=== PATIENT | male | born 1955 | race Caucasian/White ===

== ENCOUNTER 2025-04-15 13:58 | Emergency (ER) | payer MEDICARE, SELFPAY ==
[2025-04-15 14:00] VITALS: BP 130/83
--- NOTE | 2025-04-15 15:23 | ED.GENMED ---
History of Present Illness
<Zeynep Sarabia NP - Last Filed: 04/15/25 22:13>
General
Chief Complaint: Male Genito-Urinary Symptoms
Source: patient
Exam Limitations: none
Time Seen by Provider: 04/15/25 15:03
Nursing documentation reviewed up to this point in time: agreed with
History of Present Illness
History of Present Illness:
Patient to ED with complaint of fever/chills x 1 week. States he was traveling in [place]. States he travels with a zpack and took this without improvement. He was then seen by a provider in [place] who was concerned for sinus infection. He was
placed on amoxicillin on , still no improvement. He had labs drawn yesterday in [place]. Urine pos for blood and protein. CBC not included. To ED today for persistent fevers. Temp max 103.8. Reports chills, intermittent chest pain, PRADO. No
cough, no n/v/d or abdominal pain. Denies any calf pain or swelling. No rash. Appetite decreased.
Past History
<Zeynep Sarabia NP - Last Filed: 04/15/25 22:13>
Past History
ED Past Medical History: HTN, Hypercholesterolemia and Psychiatric (depression)
ED Past Surgical History: Tonsilectomy and Other (Inguinal hernia repair Nov 2024)
Social History
Tobacco: Former smoker (quit x 25 years)
Alcohol: Daily (wine)
Drug: None
Review of Systems
<Zeynep Sarabia NP - Last Filed: 04/15/25 22:13>
Review of Systems
Allergies reviewed?: Yes
All Other Systems: ROS reviewed and negative except as documented in HPI and ROS
Constitutional: Reports fever, fatigue and chills
EENT: Reports no symptoms
Respiratory: Reports trouble breathing (PRADO)
ABD/GI: Reports no symptoms
: Reports no symptoms
Musculoskeletal: Reports no symptoms
Skin: Reports no symptoms
Neurological: Reports weakness
Psychiatric: Reports no symptoms
Phy Exam
<Zeynep Sarabia SOFTWARE QA SYSTEM SPECIALIST - Last Filed: 04/15/25 22:13>
General Physical Exam
General Presentation: moderate distress
General age: appears stated age
General Skin: warm and dry
General Habitus: normal
General Mental: alert
Cardiovascular Exam
Cardiovascular Exam: tachycardia
Pulmonary Exam
Pulmonary Exam: lungs clear and chest non tender
Gastrointestinal Exam
Gastrointestinal Exam: non tender and soft
Neurological Exam
Neurological Exam: alert and oriented x3
Musculoskeletal Exam
Musculoskeletal Exam: full ROM and no edema
Skin Exam
Skin Exam: normal color, warm/dry and no rash
Psychiatric Exam
Psychiatric Exam: normal mood/affect
Course
<Zeynep Sarabia SOFTWARE QA SYSTEM SPECIALIST - Last Filed: 04/15/25 22:13>
Orders/Labs/Results
Orders:
Orders
04/15/25 15:22
Cardiac Monitoring- Treatment ONCE
Acetaminophen [Tylenol] 1,000 mg PO NOW STA
04/15/25 15:23
Electrocardiogram (*1) Urgent
Reason for Study: Chest Pain
EKG- Treatment ONCE
0.9% Sodium Chloride 1000 ml [Nss] 1,000 ml IV BOLUS
04/15/25 16:23
Complete Blood Count/With Diff Urgent
Comprehensive Metabolic Panel Urgent
D-Dimer Urgent
Direct Bilirubin Urgent
Comment: ADD ON
Lactic Acid Urgent
Lipase Urgent
Comment: ADD ON
Monotest Urgent
Troponin I Urgent
Blood Culture Urgent
MARTHA Source: Blood/Venous
Specimen Description:
04/15/25 16:25
COVID-19 Antigen Urgent
Source: Nasal Swab
Urinalysis Reflex To Culture Urgent
Date Specimen was Collected: 04/15/25
Time Specimen was Collected: 16:19
Urine Microscopic Reflex Cult Urgent
Influenza A+B Rapid Molecular Urgent
MARTHA Source: Nasal Swab
Specimen Description:
Urine Culture Urgent
MARTHA Source: U
Specimen Description:
Date Specimen was Collected: 04/15/25
Time Specimen was Collected: 16:19
04/15/25 16:27
Blood Culture Urgent
MARTHA Source: Blood/Venous
Specimen Description:
04/15/25 17:06
Add On- LAB Urgent
Tests Added?: lipase
04/15/25 17:08
Ketorolac [Toradol] 15 mg IV NOW STA
04/15/25 17:15
CT Pe/abd/pel W Urgent
Reason For Exam: elevated LFT's, fever unknown origin, tachycardia
04/15/25 17:27
Add On- LAB Urgent
Tests Added?: mono
04/15/25 17:54
Add On- LAB Urgent
Tests Added?: direct bilirubin
04/15/25 18:54
Hepatitis A IgM Antibody Urgent
Hepatitis B Core Ab, IgM Urgent
Hepatitis B Surface Antibody Urgent
Hepatitis B Surface Antigen Urgent
Hepatitis C Antibody Urgent
Abnormal Lab Results
04/15/25 04/15/25
16:23 16:25
WBC 3.8 L 10^3/uL
(4.8-10.8)
RBC 3.17 L 10^6/uL
(4.70-6.10)
Hgb 9.4 L g/dL
(13.0-18.0)
Hct 27.5 L %
(39.0-52.0)
MPV 10.8 H fL
(7.4-10.4)
Abs Immat Gran (auto) 0.1 H 10^3/uL
(0-0.05)
Absolute Lymphs (auto) 1.0 L 10^3/uL
(1.2-3.4)
Immature Gran % 1.8 H %
(0-0.5)
Monocytes % 13.8 H %
(1.7-9.3)
D-Dimer 5.90 H ug/mlFEU
(0.00-0.50)
BUN 31 H mg/dl
(9-20)
Glucose 106 H mg/dl
(70-99)
Total Bilirubin 2.7 H mg/dl
(0.2-1.3)
Direct Bilirubin 1.2 H mg/dl
(0.0-0.4)
AST 630 H* U/L
(17-59)
ALT 322 H U/L
(0-50)
Alkaline Phosphatase 139 H U/L
(38-126)
Albumin 3.3 L g/dl
(3.5-5.0)
Ur Occult Blood Reflex 4+ A
(Negative)
Urine Bilirubin 1+ A
(Negative)
Urine Urobilinogen 3+ A
(Neg - 1+)
Leukocyte Esterase Rfl 1+ A
(Negative)
Urine Bacteria (Reflex) Many A
(Negative)
Urine Albumin (Reflex) 3+ A
(Neg - Trace)
04/15/25 16:23
04/15/25 16:23
Vital Signs
Initial and Last Documented VS:
Initial Vital Signs
Temp Pulse Resp BP Pulse Ox
99.6 F 96 16 130/83 100
04/15/25 14:00 04/15/25 14:00 04/15/25 14:00 04/15/25 14:00 04/15/25 14:00
Last Documented Vital Signs
Temp Pulse Resp BP Pulse Ox
99.1 F 86 16 106/63 96
04/15/25 18:54 04/15/25 19:00 04/15/25 19:00 04/15/25 18:34 04/15/25 19:00
<Yvette Camara MD - Last Filed: 04/15/25 18:03>
Orders/Labs/Results
Orders:
Orders
04/15/25 15:22
Cardiac Monitoring- Treatment ONCE
Acetaminophen [Tylenol] 1,000 mg PO NOW STA
04/15/25 15:23
Electrocardiogram (*1) Urgent
Reason for Study: Chest Pain
EKG- Treatment ONCE
0.9% Sodium Chloride 1000 ml [Nss] 1,000 ml IV BOLUS
04/15/25 16:23
Complete Blood Count/With Diff Urgent
Comprehensive Metabolic Panel Urgent
D-Dimer Urgent
Direct Bilirubin Urgent
Comment: ADD ON
Lactic Acid Urgent
Lipase Urgent
Comment: ADD ON
Monotest Urgent
Troponin I Urgent
Blood Culture Urgent
MARTHA Source: Blood/Venous
Specimen Description:
04/15/25 16:25
COVID-19 Antigen Urgent
Source: Nasal Swab
Urinalysis Reflex To Culture Urgent
Date Specimen was Collected: 04/15/25
Time Specimen was Collected: 16:19
Urine Microscopic Reflex Cult Urgent
Influenza A+B Rapid Molecular Urgent
MARTHA Source: Nasal Swab
Specimen Description:
Urine Culture Urgent
MARTHA Source: U
Specimen Description:
Date Specimen was Collected: 04/15/25
Time Specimen was Collected: 16:19
04/15/25 16:27
Blood Culture Urgent
MARTHA Source: Blood/Venous
Specimen Description:
04/15/25 17:06
Add On- LAB Urgent
Tests Added?: lipase
04/15/25 17:08
Ketorolac [Toradol] 15 mg IV NOW STA
04/15/25 17:15
CT Pe/abd/pel W Urgent
Reason For Exam: elevated LFT's, fever unknown origin, tachycardia
04/15/25 17:27
Add On- LAB Urgent
Tests Added?: mono
04/15/25 17:54
Add On- LAB Urgent
Tests Added?: direct bilirubin
04/15/25 18:54
Hepatitis A IgM Antibody Urgent
Hepatitis B Core Ab, IgM Urgent
Hepatitis B Surface Antibody Urgent
Hepatitis B Surface Antigen Urgent
Hepatitis C Antibody Urgent
Abnormal Lab Results
04/15/25 04/15/25
16:23 16:25
WBC 3.8 L 10^3/uL
(4.8-10.8)
RBC 3.17 L 10^6/uL
(4.70-6.10)
Hgb 9.4 L g/dL
(13.0-18.0)
Hct 27.5 L %
(39.0-52.0)
MPV 10.8 H fL
(7.4-10.4)
Abs Immat Gran (auto) 0.1 H 10^3/uL
(0-0.05)
Absolute Lymphs (auto) 1.0 L 10^3/uL
(1.2-3.4)
Immature Gran % 1.8 H %
(0-0.5)
Monocytes % 13.8 H %
(1.7-9.3)
D-Dimer 5.90 H ug/mlFEU
(0.00-0.50)
BUN 31 H mg/dl
(9-20)
Glucose 106 H mg/dl
(70-99)
Total Bilirubin 2.7 H mg/dl
(0.2-1.3)
Direct Bilirubin 1.2 H mg/dl
(0.0-0.4)
AST 630 H* U/L
(17-59)
ALT 322 H U/L
(0-50)
Alkaline Phosphatase 139 H U/L
(38-126)
Albumin 3.3 L g/dl
(3.5-5.0)
Ur Occult Blood Reflex 4+ A
(Negative)
Urine Bilirubin 1+ A
(Negative)
Urine Urobilinogen 3+ A
(Neg - 1+)
Leukocyte Esterase Rfl 1+ A
(Negative)
Urine Bacteria (Reflex) Many A
(Negative)
Urine Albumin (Reflex) 3+ A
(Neg - Trace)
04/15/25 16:23
04/15/25 16:23
Vital Signs
Initial and Last Documented VS:
Initial Vital Signs
Temp Pulse Resp BP Pulse Ox
99.6 F 96 16 130/83 100
04/15/25 14:00 04/15/25 14:00 04/15/25 14:00 04/15/25 14:00 04/15/25 14:00
Last Documented Vital Signs
Temp Pulse Resp BP Pulse Ox
99.1 F 86 16 106/63 96
04/15/25 18:54 04/15/25 19:00 04/15/25 19:00 04/15/25 18:34 04/15/25 19:00
<Zeynep Sarabia NP - Last Filed: 04/15/25 22:13>
*Radiology
Radiology exam reviewed: radiology read reviewed
*Pulse Oximetry
Patient hypoxic: no
*Critical Care Note
Total Time (30-74mins, 75-104mins- exclusive of procedures): Not Applicable
<Zeynep Sarabia NP - Last Filed: 04/15/25 22:13>
Update Note
Update Note:
Patient to ED for report of fever/chills x 1 week. Took zpack without improvement. Placed on azithromyicn on Weds for possible sinus infection, still no improvement. Temp today max 102.8. Given toradol in ED with good response. Labs reviewed.
Covid, Influenza, [place] neg. WBC 3.8, lactic normal. Tbili 2.7, elevated AST, alt, alk phos. He admits to daily drinking but reportedly has cut back. NO abdominal pain, n/v/d. Sent to CT of abd. Small stones noted in gallbladder, no evidence
of cholecystitis, dilated biliary ducts. Dr. Leon consulted. Recommended hepatitis panel which was sent. Ok for discharge with instructins to return for any abdominal pain. He has a GI proviider in [facility] and will be able to follow up there this
week. Case discussed with dr. Camara who also evaluated this patient. SHe agrees with findings and plan.
ED Attending Note
<Zeynep Sarabia NP - Last Filed: 04/15/25 22:13>
-
Portions of this chart may have been created with voice recognition software.� Occasional wrong word or��sound alike� substitutions may have occurred due to the inherent limitations of voice recognition software.
<Yvette Camara MD - Last Filed: 04/15/25 18:03>
ED Attending Note
Patient seen and examined by attending physician: Yes
I performed the substantive portion of visit, reviewed & personally made and approve the management plan that is documented in note by myself or CANDELARIO.: Yes
ED Attending Note:
I have seen and evaluated the patient with a [id number] encounter. I have spoken to the [SOFTWARE QA SYSTEM SPECIALIST] and involved in the medical history, the physical exam, medical decision making.
Evaluation and management service: agree unless noted differently below.
Results interpretation: agree unless noted differently below.
Patient is 70-year-old man with history of hypertension presenting to the emergency department fevers. Patient states that he arrived to [place] last week and developed a fever. He saw a doctor there and was started on amoxicillin. He does state
that he was having fevers chills body aches congestion. Mild cough. No chest pain. No shortness of breath. No nausea vomiting abdominal pain. No urinary symptoms. No rashes. He does state that he drinks 2 glasses of wine a day. No issues
with his liver that he is aware of. His GI doctor is at [facility]. On my evaluation patient is resting comfortably. His lungs are clear to auscultation abdomen soft benign nondistended nontender. Differential is broad but consists of viral illness
versus pneumonia versus PE. Lab work obtained prior to my evaluation. He does have some leukopenia and has elevated dimer. He does have transaminitis with an elevated alk phos. His AST and ALT pattern is consistent with alcohol use. His
elevated total bilirubin is at 2.7. Will add on direct bilirubin. Will proceed with CT PE study as well as abdomen pelvis. Will add on monoscreen as well. COVID is negative.
Discharge Plan
Departure
Patient Disposition: Home (Routine Discharge)
Date of Disposition: 04/15/25
Time of Disposition: 18:47
Patient with high blood pressure during this ER visit?: No
Condition: Good
Covid-19: Not Applicable
Discharge Problem:
Fever in adult, Elevated LFTs
Instructions: Fever in adults - Discharge instructions
Referrals:
Garret Heart MD [Family Provider, Internal Medicine]
Activity Restrictions/Additional Instructions:
As we discussed, your liver enzymes were elevated today. Please follow up with your GI doctor this week for further evaluation. You will need to your blood work repeated this week. Return to the emergency department immediately for any abdominal
pain or vomiting. Refrain from alcohol. Do not take Acetomenophen (tylenol). Use ibuprofen for fever. THe results of your blood cultures and the hepatitis panel are pending. We will call you with any positive results.
Interventions
Interventions:
*Risk Screen - Suicide Last Done: 04/15/25 14:00
*General Assessment Last Done: 04/15/25 14:00
*Neglect/Abuse Screening Last Done: 04/15/25 15:48
*ED- Fall Risk Assessment Last Done: 04/15/25 15:48
*ED COVID-19 Vaccine History Last Done: 04/15/25 15:48
*Nursing Disposition Last Done: 04/15/25 19:48
ED-Male Genitourinary Assessment Last Done: 04/15/25 15:48
Discharge Date and Time
Discharge Date/Time: 04/15/25 19:49
Print Language: SAMI
[2025-04-15 16:03] VITALS: BP 126/81
[2025-04-15 16:17] VITALS: BMI 24.6
[2025-04-15] MEDS: TYLENOL 1000 MG PO (16:29)
[2025-04-15] MEDS: NSS 1000 IV (16:29)
[2025-04-15 16:51] LABS: Hematocrit 27.5 % (39.0-52.0); Hemoglobin 9.4 g/dL (13.0-18.0); Mean Corp Hgb Conc. 34.2 g/dL (33.0-37.0); Mean Corpuscular Hgb 29.7 pg (27.0-31.0); Mean Corpuscular Volume 86.8 fL (80.0-94.0); Mean Platelet Volume 10.8 fL (7.4-10.4); Platelet Count 145 10^3/uL (130-400); Red Blood Cell Count 3.17 10^6/uL (4.70-6.10); Red Cell Dist. Width 14.1 % (11.5-14.5); White Blood Cell Count 3.8 10^3/uL (4.8-10.8)
[2025-04-15 16:51] LABS: Urine Albumin 3+ (Neg - Trace); Urine Bilirubin 1+ (Negative); Urine Character Clear (Clear); Urine Color Yellow; Urine Glucose Negative (Negative); Urine Ketone Negative (Negative); Urine Leukocyte 1+ (Negative); Urine Nitrite Negative (Negative); Urine Occult Blood 4+ (Negative); Urine Urobilinogen 3+ (Neg - 1+)
[2025-04-15 16:57] LABS: Lactic Acid 1.3 mmol/L (0.7-2.0)
[2025-04-15 16:58] LABS: ALT (SGPT) 322 U/L (0-50); AST (SGOT) 630 U/L (17-59); Albumin 3.3 g/dl (3.5-5.0); Alkaline Phosphatase 139 U/L (38-126); Blood Urea Nitrogen 31 mg/dl (9-20); Calcium 8.5 mg/dl (8.4-10.2); Carbon Dioxide 27 mmol/L (22-30); Chloride 103 mmol/L (98-107); Estimated Creatinine Clearance 71 ml/min; Glucose 106 mg/dl (70-99); Potassium 4.3 mmol/L (3.5-5.1); Sodium 135 mmol/L (135-145); Total Bilirubin 2.7 mg/dl (0.2-1.3); Total Protein 6.8 g/dl (6.3-8.2); eGFR > 60.00
[2025-04-15 16:58] LABS: Urine Red Blood Cell 0-2 /HPF (0-2); Urine Squamous Cell 0-2 /LPF (Few)
[2025-04-15 16:59] LABS: COVID-19 Antigen Negative (Negative); Urine Bacteria Many (Negative)
[2025-04-15 17:00] VITALS: BP 114/64
[2025-04-15 17:07] LABS: Troponin I 0.021 ng/ml
[2025-04-15 17:08] LABS: % Basophils 0.3 % (0-2); % Eosinophils 0.8 % (0-6); % Immature Granulocytes 1.8 % (0-0.5); % Lymphocytes 25.3 % (20.5-51.1); % Monocytes 13.8 % (1.7-9.3); Absolute Immature Granulocytes 0.1 10^3/uL (0-0.05); Absolute Monocytes 0.5 10^3/uL (0.1-0.6); Absolute Neutrophils 2.2 10^3/uL (1.4-6.5); Nucleated Red Blood Cells % 0 % (-)
[2025-04-15 17:28] LABS: Lipase 222 U/L (23-300)
[2025-04-15 17:48] LABS: Monotest Negative (Negative)
[2025-04-15] MEDS: TORADOL 15 MG IV (17:51)
[2025-04-15 17:55] VITALS: BP 104/60
[2025-04-15 18:00] VITALS: BP 106/63
[2025-04-15 18:08] LABS: Direct Bilirubin 1.2 mg/dl (0.0-0.4)
[2025-04-15 18:34] VITALS: BP 106/63
[2025-04-17 23:53] LABS: Hepatitis B Surface Antigen Negative (Negative)
[2025-04-17 23:58] LABS: Hepatitis A IgM Antibody Negative (Negative); Hepatitis B Core Ab, IgM Negative (Negative)
[2025-04-18 00:10] LABS: Hepatitis C Antibody Negative (Negative)
[2025-04-18 00:27] LABS: Hepatitis B Surface Antibody Positive
== END 2025-04-15 19:49 | disposition home or self-care (01) ==
LOC: EMR 13:58
PROVIDERS: Nurse Practitioner; EMERGENCY PHYSICIAN Student in an Organized Health Care Education/Training Program; FAMILY PHYSICIAN Internal Medicine
DX: R50.9 Fever, unspecified (principal); R79.89 Other specified abnormal findings of blood chemistry; I10 Essential (primary) hypertension; E78.00 Pure hypercholesterolemia, unspecified; Z87.891 Personal history of nicotine dependence; Z11.52 Encounter for screening for COVID-19
CPT/HCPCS: 96374; 96361; 99284; 71275; 74177; 80053; 81003; 81015; 82248; 83605; 83690; 84484; 85025; 85379; 86308; 86705; 86706; 86709; 86803; 87040; 87086; 87340; 87502; 87811; 93005; Q9967